=== PATIENT | male | born 1965 | race Caucasian/White ===

== ENCOUNTER 2023-05-20 15:30 | Emergency (ER) | payer MEDICAID ==
[~2023-05-20] VITALS: Ht 180.3 cm; Wt 113.0 kg
[2023-05-20 15:37] VITALS: O2SAT 100
[2023-05-20 17:07] LABS: BASOPHILS % 0.6 % (0.0-2.0); HEMATOCRIT. 41.4 % (42.0-52.0); HEMOGLOBIN. 13.9 g/dL (14.0-18.0); LYMPHOCYTES % 14.9 % (20.0-50.0); MEAN CORPUSCULAR HEMOGLOBIN 29.5 pg (28.0-32.0); MEAN CORPUSCULAR HGB CONC 33.5 g/dL (31.0-37.0); MEAN PLATELET VOLUME 8.1 fl (7.4-10.4); MONOCYTES % 11.7 % (2.0-8.0); NEUTROPHILS % 71.8 % (40.0-76.0); PLATELET 296 x1000/uL (130-400); WHITE BLOOD COUNT 8.7 x1000/uL (4.5-11.0)
[2023-05-20 17:22] LABS: CHLORIDE 108 mEq/L (98-107); INDEX HEMOLYSI 1 (1-3); INDEX ICTERIC 1 (1-4); INDEX LIPEMIC 1 (1-3); POTASSIUM 3.9 mEq/L (3.5-5.1); SODIUM 139 mEq/L (136-145)
[2023-05-20 17:28] LABS: ACETAMINOPHEN <2 ug/mL ug/mL (10-30); CALCIUM 9.1 mg/dL (8.5-10.1); CARBON DIOXIDE 27 mEq/L (21-32); ETHANOL BLOOD < 10 mg/dL (<10); GLUCOSE 115 mg/dL (70-105); UREA NITROGEN BLOOD 10 mg/dL (7-21)
[2023-05-20 19:20] LABS: *BENZODIAZEPINES SCREEN URINE NEGATIVE (NEGATIVE); ECSTASY MDMA SCREEN URINE NEGATIVE (NEGATIVE)
[2023-05-20 20:43] LABS: *AMPHETAMINES SCREEN URINE NEGATIVE (NEGATIVE); *BARBITURATES SCREEN URINE NEGATIVE (NEGATIVE); *COCAINE SCREEN URINE NEGATIVE (NEGATIVE); CANNABINOID URINE SCREEN NEGATIVE (NEGATIVE); METHADONE URINE SCREEN NEGATIVE (NEGATIVE); OPIATES URINE SCREEN NEGATIVE (NEGATIVE); PHENCYCLIDINE URINE SCREEN NEGATIVE (NEGATIVE)
[2023-05-21] MEDS ORDERED: RISPERIDONE 1MG TABLET PO SCH (13:30)
[2023-05-21 18:45] VITALS: BP 136/86; PULSE 87; RESP 16; TEMP 98.5
== END 2023-05-21 19:17 ==
LOC: ER 15:30
DX: R53.1 Weakness (principal); Z98.890 Other specified postprocedural states; Z20.822 Contact with and (suspected) exposure to COVID-19
CPT/HCPCS: 80305; 80048; 80307; 80329; 80320; 85025; 36415; 99285; 87426; C9803; G0480